=== PATIENT | male | born 1990 | race Caucasian/White ===

== ENCOUNTER 2016-11-27 16:13 | Emergency (ER) | payer MEDICAID ==
[2016-11-27] MEDS ORDERED: Albuterol Nebulizer 2.5mg/3mL HHN STA (16:46)
[2016-11-27] MEDS ORDERED: Albuterol Nebulizer 2.5mg/3mL HHN ONE (16:53)
[2016-11-27 16:59] LABS: % BASOPHILS 0.1 % (0.0-2.0); % EOSINOPHILS 0.2 % (0.0-5.0); % LYMPHOCYTES 5.3 % (20.0-50.0); % MONOCYTES 11.4 % (2.0-10.0); HEMATOCRIT 43.2 % (41.0-60); HEMOGLOBIN 14.4 gm/dL (12-16); MEAN CELL VOLUME 84.8 fl (80-99); MEAN CORPUSCULAR HEMOGLOBIN 28.2 pg (26.0-30.0); MEAN CORPUSCULAR HGB CONC 33.2 pg (28.0-36.0); MEAN PLATELET VOLUME 8.1 fl; NEUTROPHILE ABSOLUTE 8.6 Th/cmm (1.8-8.0); PLATELET COUNT 217 Th/cmm (150-400); RED CELL DISTRIBUTION WIDTH 12.2 % (11.5-20.0); WHITE BLOOD COUNT 10.3 Th/cmm (4.8-10.8)
--- NOTE | 2016-11-27 17:07 | ED Physician Chart ---
ED Chief Complaint/HPI - Patient Information Date Seen:: 11/27/16 Time Seen:: 16:59 Chief Complaint:: Cough, fever and chills for 3 days History of Present Illness:: 26 yo male developed fever, chills for 3 days followed by dry cough for 2 days. Patient denies any sick contact. Fever, chills and sweating became worse at night. Patient also felt fatigue. Allergies:: Allergies Allergy/AdvReac Type Severity Reaction Status Date / Time No Known Allergies Allergy Verified 11/27/16 16:30 Vitals:: Vital Signs - 8 hr 11/27/16 16:30 Temp 100.0 F HR 82 RR 18 BP 138/70 O2 Sat % 98 ED Review of Systems - Review of Systems General/Constitutional: Chills Skin: No skin lesions Head: No headache Eyes: No loss of vision ENT: No earache Neck: No neck pain Cardio Vascular: No chest pain GI: No nausea, No vomiting G/U: No dysuria Musculoskeletal: Muscle pain Psychiatric: No prior psych history Hematopoietic: No bruising Neurological: No focal symptoms ED Past Medical History - Past Medical History Past Medical History: No significant medical hx Social History: Smoker (electronic vapor ), Alcohol, Illicit Drug Use ( methamphetamine) Surgical History: None Family Medical History - Family Member sister Hx Family Cancer: No Hx Family Coronary Artery Disease: No Hx Family Hypertension: No Hx Family Stroke: No Hx Family Seizures: No Hx Family AIDS: No Hx Family HIV: No Hx Family Hepatitis: No ED Physical Exam - Physical Examination General/Constitutional: Alert Head: Atraumatic Eyes: PERRL, EOMI Skin: No ecchymosis ENMT: External ears, nose nl Neck: Nontender Other Respiratory comments:: Left lung mild crackles when coughing Cardio Vascular: RRR, No murmur, gallop, rubs, NL S1 S2 GI: No tenderness/rebounding/guarding, Nondistended Extremities: Full ROM Neuro/Psych: Alert/oriented, No focal deficits ED Labs/Radiology/EKG Results - Radiology Results Results: CXR: no infiltrate ED Assessment - Assessment General Assessment: 26 yo male has acute bronchitis. Critical Care Time: 45 min Excludes all billable procedures: Yes This condition life threatening/high prob of deterioration: No Assessment/Comments:: CBC, CMP CXR Zithromycin 500mg IV x 1 Albuterol nebulizing Discharge home with Zithromycin 250mg x 5days ED Septic Shock - . Is Septic Shock (SBP<90, OR Lactate>4 mmol\L) present?: No - <6hrs of presentation: Vital Signs: Vital Signs - 8 hr 11/27/16 16:30 Temp 100.0 F HR 82 RR 18 BP 138/70 O2 Sat % 98 ED Reassessment (Disposition) - Reassessment Reassessment Condition:: Improved - Aftercare/Follow up Instructions Aftercare/Follow-Up Instructions:: Counseled pt regarding lab results/diagnosis & need follow up, Refer to Discharge Instructions - Patient Disposition Discharge/Transfer:: Home
[2016-11-27] MEDS ORDERED: Azithromycin 500 MG in Sodium Chloride 0.9% 250 ML IV ONE (17:11)
[2016-11-27 17:24] LABS: ALB/GLOB RATIO 1.4 (1.0-1.8); ALKALINE PHOSPHATASE 96 U/L (34-104); ANION GAP 7.4 (7.0-16.0); BILIRUBIN,TOTAL 0.5 mg/dL (0.3-1.0); BUN - UREA NITROGEN 8 mg/dL (7-25); BUN/CREATININE RATIO 8.9; CALCIUM SERUM 8.8 mg/dL (8.6-10.3); CARBON DIOXIDE 29.2 mEq/L (21.0-31.0); CHLORIDE 99 mEq/L (98-107); CREATININE - SERUM 0.9 mg/dL (0.7-1.3); GLUCOSE 110 mg/dL (70-105); POTASSIUM SERUM 3.6 mEq/L (3.5-5.1); SGOT 16 U/L (13-39); SGPT/ALT 16 U/L (7-52); SODIUM SERUM 132 mEq/L (136-145)
[2016-11-27] MEDS ORDERED: Sodium Chloride 0.9% 1,000 ML IV ONE (17:39)
--- NOTE | 2016-11-28 09:47 | Diagnostic Imaging Report ---
CHEST X-RAY: AP view INDICATION: Shortness of breath COMPARISON: None FINDINGS: Slight increased left infrahilar lung markings are noted. Developing early infiltrate in this region cannot be excluded. No effusions. Heart size normal. Osseous structures are intact. IMPRESSION: Slight increased left infrahilar lung markings. Developing early infiltrate cannot be excluded. Clinical correlation and follow-up is recommended.
== END 2016-11-27 19:50 | disposition home or self-care (01) ==
LOC: ER 16:13
DX: J20.9 Acute bronchitis, unspecified (principal); F15.10 Other stimulant abuse, uncomplicated
CPT/HCPCS: 36415-UA; 71010-TC; 80053-TC; 85007-TC; 85027-TC; 94640; J0456; J7030; J7613; Z7502